=== PATIENT | male | born 1970 | race American Indian/Alaskan Native ===

== ENCOUNTER 2016-08-01 17:40 | Emergency (ER) | payer MEDICAID, OTHER ==
[2016-08-01 18:10] VITALS: BMI 29.9
[2016-08-01 18:14] VITALS: TEMP 99.6
[2016-08-01] MEDS ORDERED: Sodium Chloride 0.9% 1,000 ML IV STA (18:32)
--- NOTE | 2016-08-01 18:32 | ED PDOC ---
Arrival/HPI - General Chief Complaint: Flu-like Symptoms Time Seen by Provider: 08/01/16 18:26 Historian: Patient - History of Present Illness Narrative History of Present Illness (Text): 08/01/16 18:27 45 y/o male, pmh including htn, nkda, c/o sinus pressure headache x 1 week with the nausea and diarrhea started today with no abdominal pain. Pt. stated that he has nasal congestion with the sinus pressure, noted to have nausea and couple episodes of watery diarrhea today with no recent traveling for the past 4 weeks, not on any antibiotics for the past 4 weeks, no dizziness, no chest pain or shortness of breath, no numbness or tingling, no other medical or psychological complaints. Past Medical History - Provider Review Nursing Documentation Reviewed: Yes - Infectious Disease Hx of Infectious Diseases: None - Cardiac Hx Hypertension: Yes - Pulmonary Hx Respiratory Disorders: No - Neurological Hx Neurological Disorder: No - HEENT Hx HEENT Disorder: No - Renal Hx Renal Disorder: No - Endocrine/Metabolic Hx Endocrine Disorders: No - Hematological/Oncological Hx Blood Disorders: No - Integumentary Hx Dermatological Disorder: No - Musculoskeletal/Rheumatological Hx Musculoskeletal Disorders: No - Gastrointestinal Hx Gastrointestinal Disorders: No - Genitourinary/Gynecological Hx Genitourinary Disorders: No - Psychiatric Hx Psychophysiologic Disorder: No Hx Substance Use: No - Surgical History Other/Comment: inguinal hernia - Anesthesia Hx Anesthesia: No Hx Anesthesia Reactions: No Hx Malignant Hyperthermia: No Family/Social History - Physician Review Nursing Documentation Reviewed: Yes Family/Social History: Unknown Family HX Smoking Status: Current Some Days Smoker Hx Alcohol Use: Yes Frequency of alcohol use: Socially Hx Substance Use: No Allergies/Home Meds Allergies/Adverse Reactions: Allergies No Known Allergies Allergy (Verified 03/12/15 08:59) Home Medications: Home Meds Medication Instructions Recorded Confirmed Amlodipine Besylate 10 mg PO DAILY 03/12/15 03/12/15 Hydrochlorothiazide [HCTZ] 12.5 mg PO DAILY 03/12/15 03/12/15 Nebivolol HCl [Bystolic] 5 mg PO DAILY 03/12/15 03/12/15 Review of Systems - Review of Systems Constitutional: absent: Fatigue, Fevers Eyes: absent: Vision Changes ENT: Sinus Congestion. absent: Hearing Changes, Tinnitus, TMJ Pain, Voice Changes, Sore Throat, Rhinorrhea, Epistaxis Respiratory: absent: Cough, Sputum, Wheezing Cardiovascular: absent: Chest Pain, Palpitations, Orthopnea Gastrointestinal: Diarrhea, Vomiting. absent: Abdominal Pain, Nausea Neurological: Headache. absent: Dizziness, Focal Weakness, Gait Changes, Speech Changes, Facial Droop, Disequilibrium, Seizure Physical Exam Vital Signs Reviewed: Yes Vital Signs Temp Pulse Resp BP Pulse Ox 08/01/16 18:45 74 20 155/117 H 98 08/01/16 18:10 99.6 F 77 18 183/102 H 98 Temperature: Afebrile Blood Pressure: Hypertensive Pulse: Regular Respiratory Rate: Normal Appearance: Positive for: Well-Appearing, Non-Toxic, Comfortable Pain Distress: Moderate Mental Status: Positive for: Alert and Oriented X 3 - Systems Exam Head: Present: Atraumatic, Normocephalic, Other (+ttp on the frontal sinus region. ) Pupils: Present: PERRL Extroacular Muscles: Present: EOMI Conjunctiva: Present: Normal Ears: Present: NORMAL TM, Normal Canal. No: Erythema Mouth: Present: Moist Mucous Membranes Pharnyx: No: ERYTHEMA, EXUDATE, TONSILS ENLARGED, Uvular Deviation Nose (External): Present: Atraumatic. No: Abrasion, Contusion, Laceration, Lesions Nose (Internal): Present: Normal Inspection, No Active Bleeding. No: Rhinorrhea , Purulent Mucous, Septal Hematoma, Epistaxis Neck: Present: Normal Range of Motion Respiratory/Chest: Present: Clear to Auscultation, Good Air Exchange. No: Respiratory Distress, Accessory Muscle Use Cardiovascular: Present: Regular Rate and Rhythm, Normal S1, S2. No: Murmurs Abdomen: Present: Normal Bowel Sounds. No: Tenderness, Distention, Peritoneal Signs, Rebound, Guarding Back: Present: Normal Inspection. No: CVA Tenderness, Midline Tenderness Upper Extremity: Present: Normal Inspection. No: Cyanosis, Edema Lower Extremity: Present: Normal Inspection. No: Edema Neurological: Present: GCS=15, Speech Normal, Motor Func Grossly Intact, Gait Normal, Memory Normal Skin: Present: Warm, Dry, Normal Color. No: Rashes Psychiatric: Present: Alert, Oriented x 3, Normal Insight, Normal Concentration Medical Decision Making ED Course and Treatment: 08/01/16 18:33 -labs/lipase -CT head -IVF/tylenol/reglan/pepcid -Observe and reassesss 08/01/16 20:49 -Labs are non-significant except potassium K+ 3.2, potassium chloride 20meq po ordered. -CT head and facial/orbit show +sinusitis, IV toradol and augmentin. -Pt. feels much better already, will discharge home. No clonidine given in the ER. -Discharge home with augmentin, claritin d24, flonase, motrin, stay hydrated, follow up with your own pmd and ENT within 2 days, return to the ER for any new or worsening signs or symptoms. - Lab Interpretations Lab Results: 08/01/16 19:25 08/01/16 19:25 Lab Results 08/01/16 19:25: WBC 3.8 L D, RBC 4.43, Hgb 14.3, Hct 39.3 L, MCV 88.7, MCH 32.3 , MCHC 36.4, RDW 14.0, Plt Count 180, MPV 9.8, Gran % 39.0 L, Lymph % (Auto) 40.7 H, Anson % (Auto) 18.8 H, Eos % (Auto) 1.0 L, Baso % (Auto) 0.5, Gran # 1.49 , Lymph # 1.6, Anson # 0.7 H, Eos # 0.0, Baso # 0.02, Sodium 136, Potassium 3.2 L , Chloride 96 L, Carbon Dioxide 33, Anion Gap 10, BUN 14, Creatinine 1.2, Est GFR ( Amer) > 60, Est GFR (Non-Af Amer) > 60, Random Glucose 98, Calcium 8.7, Total Bilirubin 0.6, AST 85 H, ALT 79 H, Alkaline Phosphatase 48, Total Protein 7.5, Albumin 3.9, Globulin 3.6, Albumin/Globulin Ratio 1.1, Lipase 70 I have reviewed the lab results: Yes Interpretation: Abnormal lab values (K+ 3.2) - RAD Interpretation Radiology Orders: 08/01/16 18:33 HEAD W/O CONTRAST [CT] Stat 08/01/16 18:37 ORBITS/ FACIALS W/O CONTRAST [CT] Stat CT Head: FINDINGS: BRAIN: No significant acute abnormality identified. No acute hemorrhage seen within the brain. No acute extraaxial fluid collections visualized. No evidence of significant intracranial mass effect.Normal lacey-white matter differentiation. VENTRICLES: No evidence of significant hydrocephalus. BONES/JOINTS: No acute fractures or other acute bony abnormality noted. SOFT TISSUES: Soft tissue swelling in the right scalp laterally. This could be related to a recent head injury, although no history of trauma is given. Recommend clinical correlation. SINUSES: Mild mucosal thickening in the right ethmoid sinuses. Remaining visualized paranasal sinuses appear clear. MASTOID AIR CELLS: Mastoid air cells appear clear. IMPRESSION: - No acute findings seen within the brain. - See above for remaining findings. Dictated By: Salome Bailey MD Dictated Date/Time: 08/01/162007 Signed By: Salome Bailey MD Date Signed: 2007 Transcribed By: JAMMIE Transcribe Date/Time : 08/01/162007 CT Orbital and facial: CT Scan ORBITS/ FACIALS W/O CONTRAST Exam Date: 08/01/16 This imaging exam was performed at [facility] EXAM: CT Maxillofacial Without Intravenous Contrast CLINICAL HISTORY: 45 years old, male; Pain; Face pain; Additional info: Facial pain TECHNIQUE: Axial computed tomography images of the face without intravenous contrast. This CT exam was performed using one or more of the following dose reduction techniques: automated exposure control, adjustment of the mA and/or kV according to patient size, and/or use of iterative reconstruction technique. Coronal and sagittal reformatted images were created and reviewed. EXAM DATE/TIME: 08/01/2016 6:37 PM COMPARISON: No relevant prior studies available. FINDINGS: LIMITATIONS: Exam is somewhat limited by mild streak/motion artifact. BONES/JOINTS: No acute fractures seen. No evidence of acute dislocation. SOFT TISSUES: Thickening of the posterior nasopharyngeal soft tissues. This is most likely due to enlarged adenoids/nasopharyngeal tonsils, given the appearance. Recommend clinical correlation. No findings to suggest significant cellulitis of the facial soft tissues. ORBITS: Intraorbital soft tissues appear grossly intact. No evidence of significant orbital emphysema. SINUSES: Minimal to mild mucosal thickening in the right ethmoid and left maxillary sinuses. No evidence of sinus fluid levels. NASOPHARYNX: Nasal septal deviation to the left. IMPRESSION: - No evidence of significant acute process on this unenhanced exam. - Minimal to mild sinus inflammatory disease. - See above for remaining findings. Dictated By: Salome Bailey MD Dictated Date/Time: 08/01/162015 Signed By: Salome Bailey MD Date Signed: 2015 Transcribed By: JAMMIE Transcribe Date/Time : 08/01/162015 Yarn Finisher: Radiologist - Medication Orders Current Medication Orders: Discontinued Medications Acetaminophen (Tylenol 325mg Tab) 650 mg PO STAT STA Stop: 08/01/16 18:34 Clonidine HCl (Catapres) 0.1 mg PO STAT STA Stop: 08/01/16 18:58 Famotidine (Pepcid) 20 mg IVP STAT STA Stop: 08/01/16 18:33 Sodium Chloride (Sodium Chloride 0.9%) 1,000 mls @ 999 mls/hr IV .Q1H1M STA Stop: 08/01/16 19:32 Metoclopramide HCl (Reglan) 10 mg IVP STAT STA Stop: 08/01/16 18:34 Potassium Chloride (K-Dur 20 Meq Er Tab) 20 meq PO STAT STA Stop: 08/01/16 20:05 - PA / VAMP MAKER / Resident Statement MD/DO has reviewed & agrees with the documentation as recorded. Disposition/Present on Arrival - Present on Arrival Any Indicators Present on Arrival: No History of DVT/PE: No History of Uncontrolled Diabetes: No Urinary Catheter: No History of Decub. Ulcer: No History Surgical Site Infection Following: None - Disposition Have Diagnosis and Disposition been Completed?: Yes Diagnosis: Sinusitis, Diarrhea Disposition: HOME/ ROUTINE Disposition Time: 20:51 Patient Plan: Discharge Condition: IMPROVED Additional Instructions: Discharge home with augmentin, claritin d24, flonase, motrin, stay hydrated, follow up with your own pmd and ENT within 2 days, return to the ER for any new or worsening signs or symptoms. Prescriptions: Amoxicillin/Clavulanate [Augmentin 875 MG-125 MG] 1 tab PO BID #14 tab Loratadine/Pseudoephedrine [Claritin-D 24 Hour Tablet] 1 each PO DAILY #5 tab.er.24h Fluticasone Nasal [Flonase] 1 spr NS DAILY #1 spr Ibuprofen [Motrin Tab] 600 mg PO QID PRN #24 tab PRN Reason: Other Referrals: Austen Marin DO [Doctor [facility]] - Follow up with primary [facility] [place] [Outside] - Follow up with primary Darío Davis DO [Staff Provider] - Follow up with primary Forms: WORK NOTE
[2016-08-01 19:32] LABS: ADD MANUAL DIFF? NO
[2016-08-01 19:37] LABS: BASO # 0.02 K/mm3 (0.0-2.0); BASO % 0.5 % (0.0-3.0); GRAN # 1.49 (1.4-6.5); HEMATOCRIT 39.3 % (42.0-52.0); LYMPH # 1.6 (1.2-3.4); LYMPH % 40.7 % (22.0-35.0); MEAN CELL VOLUME 88.7 fL (80.0-105.0); MEAN CORPUSCULAR HEMOGLOBIN 32.3 pg (25.0-35.0); MEAN CORPUSCULAR HGB CONC 36.4 g/dl (31.0-37.0); MEAN PLATELET VOLUME 9.8 fl (7.0-11.0); MONO # 0.7 (0.1-0.6); MONO % 18.8 % (1.0-6.0); PLATELET COUNT 180 10^3/uL (120.0-450.0); WHITE BLOOD COUNT 3.8 10^3/ul (4.5-11.0)
[2016-08-01 19:51] LABS: ALB/GLOB RATIO 1.1 (1.1-1.8); ALKALINE PHOSPHATASE 48 U/L (38-133); ALT/SGPT 79 U/L (7-56); AST/SGOT 85 U/L (15-59); BILIRUBIN,TOTAL 0.6 mg/dL (0.2-1.3); BLOOD UREA NITROGEN 14 mg/dL (7-21); CALCIUM 8.7 mg/dL (8.4-10.5); CARBON DIOXIDE 33 mmol/L (21-33); CHLORIDE 96 mmol/L (98-107); GFR AFRICAN-AMERICAN > 60; GLUCOSE,RANDOM 98 mg/dL (70-110); LIPASE 70 U/L (23-300); POTASSIUM 3.2 mmol/L (3.6-5.0); SODIUM 136 mmol/L (132-148); TOTAL PROTEIN 7.5 g/dL (5.8-8.3)
[2016-08-01] MEDS ORDERED: Potassium Chloride 20 mEq ER Tab PO STA (20:04)
--- NOTE | 2016-08-01 20:08 | CT ---
EXAM: CT Head Without Intravenous Contrast CLINICAL HISTORY: 45 years old, male; Pain; Headache; Tension TECHNIQUE: Axial computed tomography images of the head/brain without intravenous contrast. This CT exam was performed using one or more of the following dose reduction techniques: automated exposure control, adjustment of the mA and/or kV according to patient size, and/or use of iterative reconstruction technique. EXAM DATE/TIME: 08/01/2016 6:33 PM COMPARISON: No relevant prior studies available. FINDINGS: BRAIN: No significant acute abnormality identified. No acute hemorrhage seen within the brain. No acute extraaxial fluid collections visualized. No evidence of significant intracranial mass effect.Normal lacey-white matter differentiation. VENTRICLES: No evidence of significant hydrocephalus. BONES/JOINTS: No acute fractures or other acute bony abnormality noted. SOFT TISSUES: Soft tissue swelling in the right scalp laterally. This could be related to a recent head injury, although no history of trauma is given. Recommend clinical correlation. SINUSES: Mild mucosal thickening in the right ethmoid sinuses. Remaining visualized paranasal sinuses appear clear. MASTOID AIR CELLS: Mastoid air cells appear clear. IMPRESSION: - No acute findings seen within the brain. - See above for remaining findings.
--- NOTE | 2016-08-01 20:17 | CT ---
EXAM: CT Maxillofacial Without Intravenous Contrast CLINICAL HISTORY: 45 years old, male; Pain; Face pain; Additional info: Facial pain TECHNIQUE: Axial computed tomography images of the face without intravenous contrast. This CT exam was performed using one or more of the following dose reduction techniques: automated exposure control, adjustment of the mA and/or kV according to patient size, and/or use of iterative reconstruction technique. Coronal and sagittal reformatted images were created and reviewed. EXAM DATE/TIME: 08/01/2016 6:37 PM COMPARISON: No relevant prior studies available. FINDINGS: LIMITATIONS: Exam is somewhat limited by mild streak/motion artifact. BONES/JOINTS: No acute fractures seen. No evidence of acute dislocation. SOFT TISSUES: Thickening of the posterior nasopharyngeal soft tissues. This is most likely due to enlarged adenoids/nasopharyngeal tonsils, given the appearance. Recommend clinical correlation. No findings to suggest significant cellulitis of the facial soft tissues. ORBITS: Intraorbital soft tissues appear grossly intact. No evidence of significant orbital emphysema. SINUSES: Minimal to mild mucosal thickening in the right ethmoid and left maxillary sinuses. No evidence of sinus fluid levels. NASOPHARYNX: Nasal septal deviation to the left. IMPRESSION: - No evidence of significant acute process on this unenhanced exam. - Minimal to mild sinus inflammatory disease. - See above for remaining findings.
[2016-08-01] MEDS ORDERED: Amoxicillin-Clav 875-125 mg Tab PO STA (20:40)
[2016-08-02 01:02] VITALS: BP 143/76; PULSE 81; RESP 16; O2SAT 100
== END 2016-08-01 21:00 | disposition home or self-care (01) ==
LOC: ED 17:40
DX: J32.9 Chronic sinusitis, unspecified (principal); R19.7 Diarrhea, unspecified; I10 Essential (primary) hypertension
CPT/HCPCS: 70450; 70480; 80053; 83690; 85025; 96374; 96375; 99283; J1885; J2765; J7040